=== PATIENT | female | born 1955 | race Caucasian/White ===

== ENCOUNTER 2024-01-02 19:49 | Emergency (ER) | payer SELFPAY ==
[~2024-01-02] VITALS: Ht 172.7 cm; Wt 75.0 kg
[2024-01-02 19:56] VITALS: O2SAT 97
[2024-01-02] MEDS: OXYCODONE HCL/ACETAMINOPHEN 5/325MG TABLET PO ONE (20:58)
[2024-01-02] MEDS ORDERED: OXYC-100 MT (21:36)
[2024-01-02 22:20] VITALS: BP 148/87; PULSE 80; RESP 11
== END 2024-01-02 22:02 | disposition home or self-care (01) ==
LOC: ER 19:49
DX: S32.028A Other fracture of second lumbar vertebra, initial encounter for closed fracture (principal); F19.90 Other psychoactive substance use, unspecified, uncomplicated; E03.9 Hypothyroidism, unspecified; I25.2 Old myocardial infarction; W01.0XXA Fall on same level from slipping, tripping and stumbling without subsequent striking against object, initial encounter; Y93.89 Activity, other specified; Y92.89 Other specified places as the place of occurrence of the external cause; Y99.8 Other external cause status
CPT/HCPCS: 72131; 72192; 99285; Z7610